=== PATIENT | female | born 1995 | race Hispanic/Latino ===

== ENCOUNTER 2022-03-05 09:48 | Emergency (ER) | payer OTHER, SELFPAY ==
[2022-03-05 09:57] VITALS: BP 179/98; PULSE 76; RESP 16; TEMP 36.4; O2SAT 100
--- NOTE | 2022-03-05 10:02 | ED.EAR ---
HPI - Ear Problem General Chief complaint: Ear Stated complaint: Left Ear Irritation Time Seen by Provider: 03/05/22 10:00 Source: patient Mode of arrival: ambulatory Limitations: no limitations History of Present Illness HPI Narrative: Ms. Villa is a 26-year-old female patient presenting to the clinic today with complaints of left sided ear pain. She reports this is been ongoing for approximately 2 days. She denies any fever or chills. She reports the worst of her pain is when she is chewing/eating Related Data Allergies Allergy/AdvReac Type Severity Reaction Status Date / Time No Known Allergies Allergy Verified 03/05/22 09:54 Review of Systems Review of Systems: Pertinent positives per HPI. Patient denies any fever, chills, rash, headache, visual changes, dizziness, cough, runny nose, sore throat, shortness of breath, chest pain, palpitations, nausea, vomiting, diarrhea, constipation, abdominal pain, or any urinary issues. PMFSH Past Medical History Medical History (Updated 03/05/22 @ 10:07 by Stevenson Merritt APRN) History of female sterilization Family History Family History Father Family history of diabetes mellitus in first degree relative Other Diabetes mellitus Social History Social History Smoking status: Never smoker Second hand tobacco smoke exposure: No Alcohol intake: never Comments At the time of my signature, I reviewed and agree with the nursing past medical, surgical, social, and family history. There is no relevant family history pertinent to the patient complaint. Exam Narrative: General: Well-developed, well nourished, in no apparent distress Head: Normocephalic, atraumatic Eyes: Pupils equally round and reactive to light bilaterally, EOM intact, sclera and conjunctive clear, no discharge, lids normal Ears: TMs intact and clear, right ear canals clear, left ear canal swollen and erythemic, positive enlargement gene auricle nodes, tenderness to palpation of the tragus and pulling of the left pinna, no drainage, grossly hearing normal. Nose: Nares patent, no discharge, no inflammation, no sinus tenderness. Mouth: Oropharynx without lesions or masses, good dentition, MMM. Neck: Supple, trachea midline, no enlargement of anterior or posterior cervical nodes, no thyroid masses or goiter palpable. Cardio: Regular rate and rhythm, s1 and s2 normal, no murmur appreciated. Resp: Clear to auscultation bilaterally anteriorly and posteriorly, no rhonchi, rales, wheezing or rubs Course Course Emergency Course: Portions of this record may have been created with voice recognition software. Level of Care: Express Care Visit Vital Signs Vital signs: Vital Signs Temperature 36.4 C L 03/05/22 09:57 Pulse Rate 76 03/05/22 09:57 Respiratory Rate 16 03/05/22 09:57 Blood Pressure 179/98 H 03/05/22 09:57 Pulse Oximetry 100 03/05/22 09:57 Oxygen Delivery Room Air 03/05/22 09:57 Temperature 36.4 C L 03/05/22 09:57 Pulse Rate 76 03/05/22 09:57 Respiratory Rate 16 03/05/22 09:57 Blood Pressure 179/98 H 03/05/22 09:57 Pulse Oximetry 100 03/05/22 09:57 Oxygen Delivery Room Air 03/05/22 09:57 Vital signs reviewed Medical Decision Making MDM Narrative Medical decision making narrative: At the time of visit patient is resting comfortably on the exam table. I suspect the patient has left otitis externa. Supportive measures were discussed with the patient she voiced understanding of discharge instructions. Prescription was sent for ofloxacin eardrops to her pharmacy. Differential Diagnosis Differential Diagnosis: Otitis media, otitis externa, otalgia, eustachian tube, TMJ Vital Signs Vital Signs: Vital Signs Temperature 36.4 C L 03/05/22 09:57 Pulse Rate 76 03/05/22 09:57 Respiratory Rate 16 03/05/22 09:57 Blood Pressu
== END 2022-03-05 10:22 | disposition home or self-care (01) ==
PROVIDERS: Emergency Provider Nurse Practitioner Family
DX: H60.312 Diffuse otitis externa, left ear (principal)
CPT/HCPCS: 99213; G0463

== ENCOUNTER 2024-02-05 18:46 | Emergency (ER) | payer OTHER, SELFPAY ==
--- NOTE | 2024-02-05 18:58 | ED.GENADULT ---
HPI - General Adult General Chief complaint: Skin/Abscess/Foreign Body Stated complaint: Posion Yelena Time Seen by Provider: 02/05/24 18:59 Source: patient, RN notes reviewed and old records reviewed Mode of arrival: ambulatory Limitations: no limitations History of Present Illness HPI narrative: 28-year-old female to [facility] for complaint of rash to the right outer ear for 3-4 days. Patient reports pulling weeds 5 days ago and states that she may have came in contact with poison yelena. Patient hypertensive in triage. Patient verbalized to staff that she has had elevated pressures before in the past and that her primary care provider has not treated her for it. Patient denies cough, shortness of breath, throat swelling, difficulty swallowing, pertinent medical history, allergies. Patient calm and cooperative in exam room. Patient in no acute distress. Related Data Allergies Allergy/AdvReac Type Severity Reaction Status Date / Time No Known Allergies Allergy Verified 02/05/24 18:57 Review of Systems Review of Systems: All systems reviewed & are unremarkable except as noted in HPI and below Constitutional: Constitutional: Reports no additional constitutional complaints Eyes: Eyes: Reports no additional eye complaints ENT: Reports system reviewed and no additional complaints, except as documented Cardiovascular: Cardiovascular: Reports no additional cardiovascular complaints, Denies chest pain and Denies dyspnea Respiratory: Respiratory: Reports no additional respiratory complaints, Denies cough and Denies dyspnea Musculoskeletal: Musculoskeletal: Reports no additional musculoskeletal complaints Integumentary/Breasts: Skin/Breast: Reports as per HPI and Reports rash ( Right outer ear) Neurologic: Reports system reviewed and no additional complaints, except as documented Psychiatric: Psychiatric: Reports no additional psychiatric complaints [facility] Past Medical History Medical History History of female sterilization Family History Family History Father Family history of diabetes mellitus in first degree relative Other Diabetes mellitus Social History Social History Smoking status: Never smoker Second hand tobacco smoke exposure: No Alcohol intake: never Comments At the time of my signature, I reviewed and agree with the nursing past medical, surgical, social, and family history. There is no relevant family history pertinent to the patient complaint. Exam Const: General: cooperative, healthy appearing, comfortable, no acute distress, alert and well nourished Nutritional Appearance: well nourished Orientation/consciousness: patient oriented x3 Limitations: no limitations HENMT: Head: normal to inspection Ears: TM normal on the right, EAC's normal and external ear abnormal pain with movement of external ear on the right Face/Nose/Sinus: Normal external nose present, Normal nares present, normal facial exam, No erythema and No edema Face and sinus: normal facial exam, no erythema and no edema Mouth: Yes Normal oral and palatal mucosa present Eyes: General: appearance normal, both eyes and all related structures Neck: Neck: normal visual inspection, full ROM and no meningeal signs Lymphatic: no lymphadenopathy noted and no lymphedema noted Chest: Chest palpation & inspection: normal inspection of the chest Resp: Effort & Inspection: normal respiratory effort and able to speak in complete sentences Auscultation: clear to auscultation bilaterally Cardio: Jugular venous distension: no JVD Rate: regular rate Rhythm: regular rhythm Back/Spine/Pelvis: Cervical Spine: cervical ROM normal Skin: General skin exam: normal color, turgor normal and rashes (right outer ear; mild edema and erythema) Neuro: General: pat
[2024-02-05 19:01] VITALS: BP 160/96
[2024-02-05 19:02] VITALS: PULSE 81; RESP 16; TEMP 36.8; O2SAT 100
== END 2024-02-05 19:16 | disposition home or self-care (01) ==
PROVIDERS: Emergency Provider Nurse Practitioner Family
DX: L25.9 Unspecified contact dermatitis, unspecified cause (principal); R03.0 Elevated blood-pressure reading, without diagnosis of hypertension
CPT/HCPCS: 99213; G0463